=== PATIENT | female | born 1965 | race Caucasian/White ===

== ENCOUNTER 2016-03-17 09:20 | Emergency (ER) | payer MEDICARE, OTHER ==
[2016-03-17] MEDS ORDERED: ATROPINE SULFATE 0.1 MG/ML SYRINGE ONE (09:52)
[2016-03-17] MEDS ORDERED: ONDANSETRON 4 MG/2ML 2 ML VIAL ONE ×2 (09:53→11:23)
[2016-03-17] MEDS ORDERED: KETOROLAC TROMETHAMINE 30 MG/ML 1 ML VIAL ONE (09:53)
[2016-03-17] MEDS ORDERED: SODIUM CHLORIDE 0.9% 1,000 ML ONE (09:53)
[2016-03-17 10:22] LABS: ABSOLUTE NEUTROPHIL COUNT 9.6 K/mm3 (1.8-7.7); BASO # 0.1 K/mm3 (0.0-0.2); BASO % 0.4 % (0.2-1.0); EOS # 0.1 (0.0-0.5); EOS % 0.6 % (0.9-2.9); HEMATOCRIT 40.4 % (37.0-47.0); HEMOGLOBIN 13.2 gm/l (12.0-16.0); IMM NEUT% 0.2 % (0-1); LYMPH # 1.4 (1.0-4.8); LYMPH % 11.7 % (15-45); MEAN CELL VOLUME 94.4 fl (81.0-99.0); MEAN CORPUSCULAR HEMOGLOBIN 30.8 pg (27.0-31.0); MEAN CORPUSCULAR HGB CONC 32.7 g/dl (33.0-37.0); MEAN PLATELET VOLUME 10.2 fl (7.4-10.4); MONO # 0.5 (0.0-0.8); MONO % 3.9 % (4-12); NEUT % 83.2 % (43-75); PLATELET COUNT 191 K/mm3 (130-400)
[2016-03-17] MEDS ORDERED: PROMETHAZINE HCL 25 MG/ML VIAL ONE ×2 (10:23→11:45)
[2016-03-17 10:28] LABS: URINE APPEARANCE CLEAR; URINE BILIRUBIN NEGATIVE (NEGATIVE); URINE BLOOD NEGATIVE (NEGATIVE); URINE COLOR YELLOW; URINE GLUCOSE (UA) NEGATIVE (NEGATIVE); URINE LEUKOCYTE ESTERASE NEGATIVE (NEGATIVE); URINE NITRITE NEGATIVE (NEGATIVE); URINE PROTEIN NEGATIVE (NEGATIVE); URINE UROBILINOGEN NORMAL (0-1 mg/dl)
[2016-03-17 10:36] LABS: ALB/GLOB RATIO 1.4 (>1.0); ALBUMIN 4.3 gm/dL (3.5-5.7); CALCIUM 10.9 mg/dL (8.6-10.3)
--- NOTE | 2016-03-17 11:16 | RAD ---
ABDOMEN 2 VIEWS W PA CHEST HISTORY: Nausea and vomiting. COMPARISONS: None. FINDINGS: A single view of the chest and supine and upright views of the abdomen were performed demonstrating air within the patient's stomach and proximal small bowel. The abdominal bowel gas pattern is nonspecific. No findings of free intraperitoneal air is suggested. The heart size is normal. The lung carlos. Be clear. The osseous structures appear to be intact. IMPRESSION: 1. A nonspecific abdominal bowel gas pattern with a minimal amount of air seen within nondilated small bowel within the proximal small bowel structures. No evidence of free intraperitoneal air is observed. 2. A negative single view chest.
[2016-03-17] MEDS ORDERED: SODIUM CHLORIDE 0.9% 100 ML IV ONE (11:45)
== END 2016-03-17 13:07 | disposition home or self-care (01) ==
LOC: ED 09:20
DX: R11.2 Nausea with vomiting, unspecified (principal); R19.7 Diarrhea, unspecified; R10.9 Unspecified abdominal pain
CPT/HCPCS: 85025; 80053; 81003; 74022; 96375; 96376 ×2; 99284 ×2; 96365; J0461; J2550 ×2; J2405 ×2; J7030; J7050